=== PATIENT | male | born 1970 | race Caucasian/White ===

== ENCOUNTER 2021-02-14 21:57 | Observation (INO) ==
[2021-02-14 22:31] LABS: Basophils # (auto) 0.02 K/uL (0-0.2); Basophils % (auto) 0.2 %; Eosinophils # (auto) 0.04 K/uL (0-0.5); Eosinophils % (auto) 0.4 %; Hematocrit (blood only) 40.5 % (42-52); Hemoglobin 13.8 g/dL (14.0-18.0); Immature Granulocytes # (auto) 0.02 K/uL (0.00-0.02); Immature Granulocytes % (auto) 0.2 %; Lymphocytes # (auto) 2.72 K/uL (1.2-3.4); Lymphocytes % (auto) 25.8 %; Mean Corpuscular Hemoglobin 30.9 pg (25-34); Mean Corpuscular Hgb Conc 34.1 g/dL (32-36); Mean Corpuscular Volume 90.6 fL (80-100); Mean Platelet Volume 10.1 fL (7.4-10.4); Monocytes # (auto) 0.56 K/uL (0.11-0.59); Monocytes % (auto) 5.3 %; Neutrophils # (auto) 7.19 K/uL (1.4-6.5); Neutrophils % (auto) 68.1 %; Platelet Count 352 K/uL (130-400); RDW Coefficient of Variation 12.5 % (11.5-14.5); RDW Standard Deviation 40.9 fL (36.4-46.3); Red Blood Count 4.47 M/uL (4.7-6.1); White Blood Count 10.55 K/uL (4.8-10.8)
[2021-02-14 22:42] LABS: D Dimer 220 ug/L FEU (0-500); Partial Thromboplastin Time 26.8 Seconds (21.0-31.0); Prothrombin Time 9.8 Seconds (9.0-12.0)
[2021-02-14] MEDS ORDERED: GI COCKTAIL ED USE PO ONE (22:48)
[2021-02-14 22:58] LABS: Alanine Aminotransferase 20 U/L (12-78); Albumin Level 3.9 gm/dl (3.4-5.0); Aspartate Aminotransferase 15 U/L (15-37); BUN Creatinine Ratio 13.2 (10-20); Blood Urea Nitrogen 12 mg/dl (7-18); Carbon Dioxide 27 mmol/L (21-32); Chloride 102 mmol/L (98-107); Creatinine Clr Calc Pharmacy 104.8 ml/min; Est GFR (African American) 117.2; Est GFR (Non-African American) 101.1; Glucose 112 mg/dl (70-99); Potassium 3.5 mmol/L (3.5-5.1); Sodium 136 mmol/L (136-145)
[2021-02-14 23:02] LABS: Albumin Globulin Ratio 1.3 (0.9-2); Alkaline Phosphatase 92 U/L (45-117); Bilirubin,Total 0.4 mg/dl (0.2-1); Total Protein 6.9 gm/dl (6.4-8.2); Troponin I < 0.015 ng/ml (0-0.045)
[2021-02-15 00:23] LABS: Influenza A virus by PCR Negative (Neg); Influenza B virus by PCR Negative (Neg); RSV by PCR Negative (Neg); SARS CoV2 RNA(COVID-19) InHosp NEGATIVE (Negative)
[2021-02-15] MEDS ORDERED: METOPROLOL SUCC 25MG EXT REL TAB PO SCH (00:30)
--- NOTE | 2021-02-15 00:36 | Emergency Department Note ---
History of Present Illness General Chief complaint: Cardiac Assessment Stated complaint: CHEST PAIN Time Seen by Provider: 02/14/21 22:30 History of Present Illness Maximum Pain Intensity: 5 This 50-year-old smoker presents to the ER complaining of chest pain that radiates to his shoulders tonight that started around 8:30 PM Location: Chest Quality: Pressure Severity: Moderate Duration: This evening Timing: Started on 830 Context: Patient was concerned and called EMS Modifying factors: better with nitroglycerin and aspirin; worse with nothing Patient denies fever, chills, cough, congestion, dental pain, leg pain or swelling. He had Covid 3 weeks ago. He feels better from the Covid infection. No prior heart disease. No history of blood clots. Home Medications Medication Instructions Recorded Confirmed Type cholecalciferol (vitamin D3) 50 mcg PO DAILY 02/14/21 02/14/21 History [Vitamin D3] esomeprazole magnesium [Nexium] 40 mg PO DAILY 02/14/21 02/14/21 History famotidine 20 mg PO HS PRN 02/14/21 02/14/21 History glucos sul [id number] 1 cap PO DAILY 02/14/21 02/14/21 History [Glucosamine Chondroitin] levothyroxine 75 mcg PO QAM 02/14/21 02/14/21 History magnesium oxide 400 mg PO DAILY 02/14/21 02/14/21 History metoprolol succinate 25 mg PO HS 02/14/21 02/14/21 History omega-3 fatty acids 2,000 mg PO DAILY 02/14/21 02/14/21 History tadalafil 10 mg PO DIRECTED PRN 02/14/21 02/14/21 History turmeric 400 mg PO DAILY 02/14/21 02/14/21 History venlafaxine 150 mg PO HS 02/14/21 02/14/21 History Allergies Allergy/AdvReac Type Severity Reaction Status Date / Time Penicillins Allergy Mild RASH Verified 02/14/21 23:40 Past Med/Surg History Medical History GERD (gastroesophageal reflux disease) Surgical History No pertinent past surgical history Social History Smoking Status: Current every day smoker Feels Safe at Home: Yes Review of Systems A total of 10 systems reviewed and were otherwise negative Physical Exam Vital Signs Vital Signs - 24 hr 02/14/21 22:04 02/14/21 22:09 02/14/21 22:14 Temperature 36.9 C Temperature Source Oral Pulse Rate 106 H 99 H 99 H Pulse Rate from SpO2 Sensor 107 H 95 H Pulse Rhythm Regular Pulse Strength Normal Respiratory Rate 10 L 19 12 Respiratory Effort / Characteristics Non-Labored Respiratory Depth Normal Blood Pressure 131/94 131/94 Blood Pressure Mean 106 106 Pulse Oximetry 97 97 95 Oxygen Delivery Method Room Air Sepsis Recent Fever Within 48 Hours No Sepsis New/Unexplained Change in Mental Status N/A Sepsis Action Taken by Nursing No Action Required 02/14/21 22:19 02/14/21 22:30 02/14/21 22:31 Temperature Temperature Source Pulse Rate 96 H 89 89 Pulse Rate from SpO2 Sensor 94 H 92 H 85 Pulse Rhythm Pulse Strength Respiratory Rate 19 23 16 Respiratory Effort / Characteristics Respiratory Depth Blood Pressure 142/88 H 137/91 Blood Pressure Mean 106 106 Pulse Oximetry 95 95 96 Oxygen Delivery Method Sepsis Recent Fever Within 48 Hours Sepsis New/Unexplained Change in Mental Status Sepsis Action Taken by Nursing 02/14/21 23:31 Temperature Temperature Source Pulse Rate 85 Pulse Rate from SpO2 Sensor 86 Pulse Rhythm Pulse Strength Respiratory Rate 17 Respiratory Effort / Characteristics Respiratory Depth Blood Pressure 128/83 Blood Pressure Mean 98 Pulse Oximetry 96 Oxygen Delivery Method Sepsis Recent Fever Within 48 Hours Sepsis New/Unexplained Change in Mental Status Sepsis Action Taken by Nursing VITALS: Vitals are noted on the nurse's note and reviewed by myself. Vital signs stable. GENERAL: Pleasant male, in no acute distress, nondiaphoretic, well-developed well-nourished. SKIN: Capillary reflex less than 2 seconds. HEENT: Normocephalic. PERRLA. EOMI. Nares patent. Mucous membranes moist. Neck is supple without nuchal rigidity. HEART: Regular rate and rhythm, chest nontender to palpation LUNGS: Clear to auscultation bilaterally without wheezes, rales or rhonchi. No retractions or accessory muscle use. ABDOMEN: Positive bowel sounds x 4. Normal tympanic percussion. Soft, nonten samir, without masses or organomegaly. Heard sign negative. No guarding or rebound tenderness. MUSCULOSKELETAL: No gross musculoskeletal defects. NEURO: Patient was alert and oriented to person place and time. No focal neurological deficits. Course Administered Medications Discontinued Medications Al Hydrox/Mg Hydrox/Simethicone (Gi Cocktail Ed Use) 1 dose PO ONE ONE Stop: 02/14/21 22:49 Last Admin: 02/14/21 22:55 Dose: 1 dose Documented by: [id number] Medical Decision Making Medical Records Attestation: I reviewed the patient's medical records. Home Medications Current Medication List: was personally reviewed by me Laboratory Data Attestation: I reviewed the patient's lab results. Result diagrams: 02/14/21 22:15 02/14/21 22:15 Lab Results 02/14/21 02/14/21 02/14/21 Range/Units 22:15 22:15 22:15 WBC 10.55 (4.8-10.8) K/uL RBC 4.47 L (4.7-6.1) M/uL Hgb 13.8 L (14.0-18.0) g/dL Hct 40.5 L (42-52) % MCV 90.6 (80-100) fL MCH 30.9 (25-34) pg MCHC 34.1 (32-36) g/dL RDW Std Deviation 40.9 (36.4-46.3) fL RDW Coeff of Sandra 12.5 (11.5-14.5) % Plt Count 352 (130-400) K/uL MPV 10.1 (7.4-10.4) fL Immature Gran % (Auto) 0.2 % Neut % (Auto) 68.1 % Lymph % (Auto) 25.8 % [place] % (Auto) 5.3 % Eos % (Auto) 0.4 % Baso % (Auto) 0.2 % Neut # (Auto) 7.19 H (1.4-6.5) K/uL Lymph # (Auto) 2.72 (1.2-3.4) K/uL [place] # (Auto) 0.56 (0.11-0.59) K/uL Eos # (Auto) 0.04 (0-0.5) K/uL Baso # (Auto) 0.02 (0-0.2) K/uL Immature Gran # (Auto) 0.02 (0.00-0.02) K/uL PT 9.8 (9.0-12.0) Seconds INR 1.0 (0.9-1.1) APTT 26.8 (21.0-31.0) Seconds PTT Ratio 1.0 D-Dimer 220 (0-500) ug/L FEU Sodium 136 (136-145) mmol/L Potassium 3.5 (3.5-5.1) mmol/L Chloride 102 (98-107) mmol/L Carbon Dioxide 27 (21-32) mmol/L Anion Gap 7.0 (3-11) BUN 12 (7-18) mg/dl Creatinine 0.89 (0.6-1.4) mg/dl Est Cr Clr Drug Dosing 104.8 ml/min Est GFR ( Amer) 117.2 Est GFR (Non-Af Amer) 101.1 BUN/Creatinine Ratio 13.2 (10-20) Glucose 112 H (70-99) mg/dl Calcium 9.0 (8.5-10.1) mg/dl Total Bilirubin 0.4 (0.2-1) mg/dl AST 15 (15-37) U/L ALT 20 (12-78) U/L Alkaline Phosphatase 92 (45-117) U/L Troponin I < 0.015 (0-0.045) ng/ml Total Protein 6.9 (6.4-8.2) gm/dl Albumin 3.9 (3.4-5.0) gm/dl Globulin 3.0 (2.5-4.0) gm/dl Albumin/Globulin Ratio 1.3 (0.9-2) COVID-19 Eval Order SARS-CoV-2 (PCR) (Negative) Influenza Type A (PCR) (Neg) Influenza Type B (PCR) (Neg) RSV (RT-PCR) (Neg) 02/14/21 02/14/21 Range/Units 23:29 23:29 WBC (4.8-10.8) K/uL RBC (4.7-6.1) M/uL Hgb (14.0-18.0) g/dL Hct (42-52) % MCV (80-100) fL MCH (25-34) pg MCHC (32-36) g/dL RDW Std Deviation (36.4-46.3) fL RDW Coeff of Sandra (11.5-14.5) % Plt Count (130-400) K/uL MPV (7.4-10.4) fL Immature Gran % (Auto) % Neut % (Auto) % Lymph % (Auto) % [place] % (Auto) % Eos % (Auto) % Baso % (Auto) % Neut # (Auto) (1.4-6.5) K/uL Lymph # (Auto) (1.2-3.4) K/uL [place] # (Auto) (0.11-0.59) K/uL Eos # (Auto) (0-0.5) K/uL Baso # (Auto) (0-0.2) K/uL Immature Gran # (Auto) (0.00-0.02) K/uL PT (9.0-12.0) Seconds INR (0.9-1.1) APTT (21.0-31.0) Seconds PTT Ratio D-Dimer (0-500) ug/L FEU Sodium (136-145) mmol/L Potassium (3.5-5.1) mmol/L Chloride (98-107) mmol/L Carbon Dioxide (21-32) mmol/L Anion Gap (3-11) BUN (7-18) mg/dl Creatinine (0.6-1.4) mg/dl Est Cr Clr Drug Dosing ml/min Est GFR ( Amer) Est GFR (Non-Af Amer) BUN/Creatinine Ratio (10-20) Glucose (70-99) mg/dl Calcium (8.5-10.1) mg/dl Total Bilirubin (0.2-1) mg/dl AST (15-37) U/L ALT (12-78) U/L Alkaline Phosphatase (45-117) U/L Troponin I (0-0.045) ng/ml Total Protein (6.4-8.2) gm/dl Albumin (3.4-5.0) gm/dl Globulin (2.5-4.0) gm/dl Albumin/Globulin Ratio (0.9-2) COVID-19 Eval Order CovFluRsv at [facility] [place] SARS-CoV-2 (PCR) NEGATIVE (Negative) Influenza Type A (PCR) Negative (Neg) Influenza Type B (PCR) Negative (Neg) RSV (RT-PCR) Negative (Neg) Imaging Data Attestation: I personally reviewed and interpreted this imaging study as follows: MDM Narrative Prior records/ancillary studies reviewed. Triage Nursing notes reviewed. Additional history obtained from nursing The patient's history was concerning for chest pain. Differential diagnosis: Etiologies such as cardiac ischemia, aortic dissection, pulmonary embolism, pneumonia, pneumothorax, musculoskeletal, infections, pericarditis, myocarditis, esophageal rupture, gastrointestinal, as well as others were entertained. Physical examination: As above. ER treatment provided: An order was placed for continuous cardiac monitoring. The monitor shows a rate of 60-1 10 with a sinus rhythm. GI cocktail. EMS gave aspirin nitroglycerin On reassessment the patient felt better. Diagnostic interpretation by me: #1 the electrocardiogram was normal sinus, occasional PVC, T wave inversions in V3 through V6, rate of 107. Impression sinus tachycardia with T wave inversions in the lateral leads and occasional PVC interpreted by myself EKG ordered for chest pain I think arrhythmia is unlikely. EKG shows no interval abnormalities such as QT prolongation or WPW. There are no findings to suggest Brugada syndrome. Cardiac monitoring in the emergency department reveals no tachycardic or bradycardic dy srhythmia. Hypertrophic cardiomyopathy was considered but there are no clear historical elements pointing toward this. EKG is not suggestive. The QRS voltage is not extremely large and there are no suggestive Q waves. #2the electrocardiogram was normal sinus, occasional PVC, progressive T wave inversions in V3 through V6, rate of 107. Impression sinus tachycardia with T wave inversions in the lateral leads and occasional PVC interpreted by myself EKG ordered for chest pain I think arrhythmia is unlikely. EKG shows no interval abnormalities such as QT prolongation or WPW. There are no findings to suggest Brugada syndrome. Cardiac monitoring in the emergency department reveals no tachycardic or bradycardic dysrhythmia. Hypertrophic cardiomyopathy was considered but there are no clear historical elements pointing toward this. EKG is not suggestive. The QRS voltage is not extremely large and there are no suggestive Q waves. The labs revealed negative troponin, negative dimer Imaging studies: Chest x-ray with no acute consolidation, pneumothorax or free air per my interpretation HEART SCORE: Hx: high/mod/low suspicion: 1 ECG: ST depression/nonspecific changes/normal: 1 Age: Greater than 65/45-64/less than 45: 1 Risk factors: (Hypertension, hyperlipidemia, diabetes, coronary disease, tobacco use, cocaine use): 1 Troponin: Greater than 2 times normal limits/1-2 times normal limits/normal: 0 Total: 4 Consultation: A consultation was placed with the hospitalist, Dr. Grayson. The case was discussed and diagnostics were reviewed. The patient was evaluated in the ER for further treatment. Exam and history seem consistent with chest pain with concerns for cardiac in etiology. First troponins negative. New changes to the EKG when compared to prior. Heart score is moderate. Patient agreeable to treatment plan of admission. EMS gave aspirin. He was pain-free in the ER. D-dimer was negative. By the evaluation outlined above emergent etiologies such as aortic dissection, pulmonary embolism, pneumonia, pneumothorax, infections, pericarditis, myocarditis, gastrointestinal, as well as others were deemed relatively unlikely. The pt informed about the findings as listed above. All questions were answered and pleased with the treatment. The chart was completed utilizing [employer] Speech voice recognition software. Grammatical errors, random word insertions, pronoun errors, and incomplete sentences are an occassional consequence of this system due to software limitations, ambient noise, and hardware issues. Any formal questions or concerns about the content, text, or information contained within the body of this dictation should be directly addressed to the physician practice assistant for clarification. Impression & Plan Chest pain Discharge Plan Visit Data Chief Complaint: Cardiac Assessment Stated Complaint: CHEST PAIN ED Provider: Ana Harris ED Midlevel Provider: Cassandra Ross Discharge Problem: Chest pain Patient Disposition: Being Evaluated by Hospitalist Condition: Good Forms Stand Alone Forms: My [facility] [employer] Prescriptions Prescriptions: No Action omega-3 fatty acids 1,000 mg Capsule 2,000 mg PO DAILY RF: 0 venlafaxine 150 mg capsule,extended release 24hr 150 mg PO HS RF: 0 levothyroxine 75 mcg tablet 75 mcg PO QAM RF: 0 famotidine 20 mg tablet 20 mg PO HS PRN (Reason: Heartburn) RF: 0 esomeprazole magnesium [Nexium] 40 mg Capsule,Delayed Release(Dr/Ec) 40 mg PO DAILY RF: 0 metoprolol succinate 25 mg tablet extended release 24 hr 25 mg PO HS RF: 0 tadalafil 10 mg tablet 10 mg PO DIRECTED PRN (Reason: Erectile Dysfunction) RF: 0 cholecalciferol (vitamin D3) [Vitamin D3] 50 mcg (2,000 unit) Capsule 50 mcg PO DAILY RF: 0 magnesium oxide 400 mg magnesium Tablet 400 mg PO DAILY RF: 0 turmeric 400 mg Capsule 400 mg PO DAILY RF: 0 Glucosamine Chondroitin 550-30-1 mg Capsule 1 cap PO DAILY RF: 0 Referrals Referrals: Daphne Dunbar CRNP [Primary Care Provider] -
--- NOTE | 2021-02-15 00:45 | History & Physical Report ---
Date of Service February 15, 2021 Assessment & Plan Admission and Anticipated Discharge Date Admission Date: 50 yo M w/ pMHx. of PVC's, reflux, prior tobacco use and mood disorder presents with new onset of chest pain radiating to left shoulder and back with no clear aggravating or alleviating factors Chest pain, would want to rule out ACS w/ risk factors of tobacco use and fHx. although this may represents worsening reflux and alternative diagnosis include cardiomyopathy 2/2 PVC's or recent COVID infection EKG with T wave changes, PVC's CXR with no acute findings HEART score 2 (low risk of ACS) - trend troponin Q6H X3 - ECHO ordered - ASA - ekgs and nitro with chest pain - giving oral potassium for goal of 4 PVC's - continue Metoprolol 25 QHS - will need to follow up with cardiology outpatient and may require outpatient cardiac monitoring to evaluate PVC burden mood disorder - continue venlafaxine Code: full Diet: HH DVT prophylaxis: SCD's/ambulation History of Present Illness Chief Complaint: chest pain Primary Care Provider: FAROOQ Parrish is here for chest pain. At 8 PM he developed central chest pressure that moved to his left shoulder and then went to his between his shoulder blades. It progressively worsened until 9PM and then improved for a little bit but was returning. He had associated palpitations described as heart pounding in his chest. The pain was not worse with walking. He did have some shortness of breath and some light tingling in his fingers associated with the pain. He had no improvement with Pepcid that normally improves his reflux pain. He also didn't have any improvement in his pain when he had nitro. He has had something like this in the past related to reflux, but the location was more in the epigastric area. He sees Dr. Rey for cardiology, but has not seen him for 7-8 years. He was seen for PVC's. He currently is on Metoprolol but has not taken his PM dose yet. He was Covid + on 01/30 and developed symptoms 3 days prior. He had headache, diarrhea for 8 days and chills. He contracted COVID at work along. One week ago he did have some chest tightness as his COVID symptoms were improving that felt like he was developing bronchitis but those symptoms resolve and were different that the pain he currently has. He is on Venlafaxin for mood disorder, he had more stress at work over the last day but feels he has good support and had just talked to his mother and was playing the guitar prior to the onset of the pain. Fhx.: of cardiac disease includes MGM ([place] at 42), MGF (CABG in 70's), and mother has heart disease Social Hx.: - smoked for 20 years quit 10 years ago, does use pouch - no ETOH use - uses marijuana via vape daily including today, has a card for anxiety - no recreational drugs, specifically denies any cocaine use Allergies Allergy/AdvReac Type Severity Reaction Status Date / Time Penicillins Allergy Mild RASH Verified 02/14/21 23:40 Home Medications Medication Instructions Recorded Confirmed Type Glucosamine Chondroitin 1 cap PO DAILY 02/14/21 02/14/21 History cholecalciferol (vitamin D3) 50 mcg PO DAILY 02/14/21 02/14/21 History [Vitamin D3] esomeprazole magnesium [Nexium] 40 mg PO DAILY 02/14/21 02/14/21 History famotidine 20 mg PO HS PRN 02/14/21 02/14/21 History levothyroxine 75 mcg PO QAM 02/14/21 02/14/21 History magnesium oxide 400 mg PO DAILY 02/14/21 02/14/21 History metoprolol succinate 25 mg PO HS 02/14/21 02/14/21 History omega-3 fatty acids 2,000 mg PO DAILY 02/14/21 02/14/21 History tadalafil 10 mg PO DIRECTED PRN 02/14/21 02/14/21 History turmeric 400 mg PO DAILY 02/14/21 02/14/21 History venlafaxine 150 mg PO HS 02/14/21 02/14/21 History Past Med/Surg History Medical History GERD (gastroesophageal reflux disease) Surgical History No pertinent past surgical history Social History Smoking Status: Current every day smoker Second Hand Exposure: No; Hx Alcohol Use: No Hx Substance Use: No Preferred Language: Ivorian Communication Ability: Effective Supervisor [employer] Required: No Beliefs That Will Affect Care: None Current Living Situation: Alone Feels Safe at Home: Yes Assistive Devices: None Review of Systems Review of Systems: Constitutional: denies fever, chills, vomiting, night sweats Head: denies trauma, LOC, headache admits lightheadedness Neuro: denies syncope/presyncope ENT: denies rhinorrhea, stuffiness, sneezing Cardiac: admits chest pain, palpitations Pulm.: denies trouble breathing or cough admits shortness of breath GI: denies constipation diarrhea, admits abdominal pain : denies pain, frequency, urgency Physical Exam Constitutional: WD/WN, vitals as above Eyes: PERRL, conjunctivae normal, anicteric sclerae ENMT: external ear and nose normal, oropharynx normal Neck: normal visual inspection Respiratory: normal respiratory effort, lungs clear to auscultation Cardiovascular: RRR, no murmur, no edema Chest (Breasts): Additional Comments: - no pain on palpation of sternum or costochondral cartilage of the chest Gastrointestinal (Abdomen): - normal bowel sounds, soft, nTTP Skin: no rashes, warm and dry Neurologic: no focal motor deficits Psychiatric: Orientation: alert Eye Contact: good eye contact Affect: + anxious affect Results & Data Results & Data ([facility]) Vital Signs (Past 12 Hours) Vital Signs Temp Pulse Resp BP Pulse Ox 02/14/21 23:31 85 17 128/83 96 02/14/21 22:31 89 16 96 02/14/21 22:30 89 23 137/91 95 02/14/21 22:19 96 H 19 142/88 H 95 02/14/21 22:14 36.9 C 99 H 12 131/94 95 02/14/21 22:09 99 H 19 97 02/14/21 22:04 106 H 10 L 131/94 97 Code Status & VTE Plan VTE Prophylaxis Plan VTE Prophylaxis will be ordered: Yes Supervising Physician Co-Signing Physician Notes Attending addendum: I have physically seen this patient, have supervised the medical residents activities, and agree with the H&P unless as otherwise noted. Assessment and Plan: Chest pain- Nonspecific ST wave changes on EKG PVCs noted The patient will be admitted to telemetry for serial cardiac enzymes, serial EKG's, cardiac rhythm monitoring and a 2-D echocardiogram with Dopplers. Continue aspirin Optimize potassium from 3.5 to goal of 4 Continue metoprolol succinate 25 mg daily Hypothyroidism- Continue levothyroxine 75 mcg daily GERD- Continue Nexium/pantoprazole Anxiety/depression- Continue venlafaxine Remaining orders and notations as noted
[2021-02-15] MEDS ORDERED: POLYETHYLENE (MIRALAX) 17 GM PACK PO PRN (01:28)
[2021-02-15] MEDS ORDERED: NITROGLYCERIN SL 0.4 MG/TAB TAB SL PRN (01:28)
[2021-02-15] MEDS ORDERED: FAMOTIDINE 20 MG TAB PO PRN (01:28)
[2021-02-15] MEDS ORDERED: ACETAMINOPHEN 325 MG TAB PO PRN (01:28)
[2021-02-15 04:54] LABS: Basophils # (auto) 0.01 K/uL (0-0.2); Basophils % (auto) 0.1 %; Eosinophils # (auto) 0.02 K/uL (0-0.5); Eosinophils % (auto) 0.2 %; Hematocrit (blood only) 39.7 % (42-52); Hemoglobin 13.6 g/dL (14.0-18.0); Immature Granulocytes # (auto) 0.01 K/uL (0.00-0.02); Immature Granulocytes % (auto) 0.1 %; Lymphocytes % (auto) 36.5 %; Mean Corpuscular Hgb Conc 34.3 g/dL (32-36); Mean Corpuscular Volume 90.4 fL (80-100); Mean Platelet Volume 9.9 fL (7.4-10.4); Monocytes # (auto) 0.47 K/uL (0.11-0.59); Neutrophils # (auto) 5.41 K/uL (1.4-6.5); Neutrophils % (auto) 58.1 %; Platelet Count 322 K/uL (130-400); RDW Coefficient of Variation 12.4 % (11.5-14.5); RDW Standard Deviation 41.2 fL (36.4-46.3); Red Blood Count 4.39 M/uL (4.7-6.1); White Blood Count 9.32 K/uL (4.8-10.8)
[2021-02-15 05:29] LABS: BUN Creatinine Ratio 13.7 (10-20); Blood Urea Nitrogen 10 mg/dl (7-18); Calcium 8.7 mg/dl (8.5-10.1); Carbon Dioxide 29 mmol/L (21-32); Chloride 109 mmol/L (98-107); Creatinine Clr Calc Pharmacy 124.4 ml/min; Est GFR (African American) 125.7; Est GFR (Non-African American) 108.5; Glucose 104 mg/dl (70-99); Magnesium 2.5 mg/dl (1.8-2.4); Potassium 3.9 mmol/L (3.5-5.1); Sodium 143 mmol/L (136-145); Troponin I < 0.015 ng/ml (0-0.045)
[2021-02-15] MEDS ORDERED: LEVOTHYROXINE SODIUM 75 MCG TABLET PO SCH (06:30)
--- NOTE | 2021-02-15 07:58 | XRay Report ---
XR chest 1V portable HISTORY: Atypical Chest Pain COMPARISON: 02/09/2013. FINDINGS: No pneumothorax. No pleural effusions. The heart is normal in size. No evidence for pulmona ry edema. Degenerative changes again noted within the shoulders. The lungs are clear. IMPRESSION: No acute process. ACT 112: Negative or not required by law. Electronically signed by: Timoteo Erwin M.D. 02/15/2021 7:57 AM
[2021-02-15] MEDS ORDERED: MAGNESIUM OXIDE 400 MG TAB PO SCH (09:00)
[2021-02-15] MEDS ORDERED: PANTOprazole 40 MG TAB PO SCH (09:00)
[2021-02-15] MEDS ORDERED: ASPIRIN 81 MG ECTAB PO SCH (09:00)
--- NOTE | 2021-02-15 09:54 | XCELERA ---
[id number]
--- NOTE | 2021-02-15 12:33 | XCELERA ---
[id number]
--- NOTE | 2021-02-15 14:11 | Discharge Summary ---
Date of Service February 15, 2021 Admission HPI Per Admitting Provider Hawk Abernathy is here for chest pain. At 8 PM he developed central chest pressure that moved to his left shoulder and then went to his between his shoulder blades. It progressively worsened until 9PM and then improved for a little bit but was returning. He had associated palpitations described as heart pounding in his chest. The pain was not worse with walking. He did have some shortness of breath and some light tingling in his fingers associated with the pain. He had no improvement with Pepcid that normally improves his reflux pain. He also didn't have any improvement in his pain when he had nitro. He has had s omething like this in the past related to reflux, but the location was more in the epigastric area. He sees Dr. Rey for cardiology, but has not seen him for 7-8 years. He was seen for PVC's. He currently is on Metoprolol but has not taken his PM dose yet. He was Covid + on 01/30 and developed symptoms 3 days prior. He had headache, diarrhea for 8 days and chills. He contracted COVID at work along. One week ago he did have some chest tightness as his COVID symptoms were improving that felt like he was developing bronchitis but those symptoms resolve and were different that the pain he currently has. He is on Venlafaxin for mood disorder, he had more stress at work over the last day but feels he has good support and had just talked to his mother and was playing the guitar prior to the onset of the pain. Fhx.: of cardiac disease includes MGM ([place] at 42), MGF (CABG in 70's), and mother has heart disease Social Hx.: - smoked for 20 years quit 10 years ago, does use pouch - no ETOH use - uses marijuana via vape daily including today, has a card for anxiety - no recreational drugs, specifically denies any cocaine use Principal Diagnosis Chest pain Discharge Exam Constitutional WD/WN, vitals as above Neck trachea midline, no thyromegaly Respiratory normal respiratory effort, lungs clear to auscultation Cardiovascular RRR, no murmur, no edema Gastrointestinal (Abdomen) normal bowel sounds, soft, nontender, no hepatosplenomegaly Musculoskeletal no cyanosis or clubbing, extremities motor strength 5/5 Skin no rashes, warm and dry Neurologic patellar DTR's 2+ bilat, sensation intact and PERRL, EOMI, accommodation nl, no face palsy, no dysarthria Psychiatric A+Ox3, euthymic affect Lymphatic no cervical or axillary lymphadenopathy Discharge Data Allergies Allergy/AdvReac Type Severity Reaction Status Date / Time Penicillins Allergy Mild RASH Verified 02/14/21 23:40 Consultations 02/14/21 23:10 ED Decision to Admit Stat Hospital Course (1) Chest pain: centralized chest pain/pressure, occurred at rest EKG normal, troponin negative x 2 echocardiogram with preserved EF, no wall motion abnormalities stress echocardiogram done today, no ischemic changes on EKG, no changes on echo, no chest pain with 94% predicted HR discussed other possible issues such as vaping marijuana see below CXR is clear discharge to home (2) Marijuana abuse: vapes marijuana daily, he has a medical card for use for anxiety discussed that he should really not vape educated him on possible vaping lung injury suggested that if he is going to use marijuana for anxiety, he could try alternative form such as edible or drink Total Time Total Time Spent Total Time Spent (In Minutes): 25 Discharge Plan Discharge Items Patient Disposition: Home - Self-Care Reason For Visit: CHEST PAIN Discharge Diagnosis: Chest pain, non-cardiac Condition on Discharge: Good Goals: follow up with PCP as needed Activity: Resume your previous activity Non-emergency contact: Primary Care Provider Call non-emergency contact if: you have any medication questions Follow-up/Referrals: Daphne Dunbar CRNP [Primary Care Provider] - (as needed, if chest pain persists) Diet: Regular Addtl Attending Provider Instructions: Medications: no changes Chest pain: no evidence that this is cardiac in nature troponin (heart enzyme) was negative, negative stress echocardiogram normal EKG, normal chest x-ray and pain resolved please follow up with Daphne Dunbar if you have this pain again, can work up other etiology Vaping: please be cautious with vaping, your lungs appear fine currently on chest x-ray however, vaping can cause serious lung injury, could happen at any time, wo uld advice against it if possible Pending Studies at Discharge: No Stand-Alone Forms: My mInfo, Smoking Cessation Medications and DC Order Prescriptions: Continued omega-3 fatty acids 1,000 mg Capsule 2,000 mg PO DAILY RF: 0 venlafaxine 150 mg capsule,extended release 24hr 150 mg PO HS RF: 0 levothyroxine 75 mcg tablet 75 mcg PO QAM RF: 0 famotidine 20 mg tablet 20 mg PO HS PRN (Reason: Heartburn) RF: 0 esomeprazole magnesium [Nexium] 40 mg Capsule,Delayed Release(Dr/Ec) 40 mg PO DAILY RF: 0 metoprolol succinate 25 mg tablet extended release 24 hr 25 mg PO HS RF: 0 tadalafil 10 mg tablet 10 mg PO DIRECTED PRN (Reason: Erectile Dysfunction) RF: 0 cholecalciferol (vitamin D3) [Vitamin D3] 50 mcg (2,000 unit) Capsule 50 mcg PO DAILY RF: 0 magnesium oxide 400 mg magnesium Tablet 400 mg PO DAILY RF: 0 turmeric 400 mg Capsule 400 mg PO DAILY RF: 0 Glucosamine Chondroitin 550-30-1 mg Capsule 1 cap PO DAILY RF: 0 Discharge Orders: Discharge Order (Routine); Ordered 02/15/21 Ordered By: Abdi Landa Admission Data Admit Date/Time: 02/15/21 00:30 Attending Provider: Abdi Landa Admit Provider: Lonnie Guadarrama Primary Care Provider: Daphne Dunbar Other Providers: Rip Madera Other Interventions: Discharge Summary Assessment (RN) Last Done: 02/15/21 14:21 Coding Level of Care Code 38742 OBS Care - Discharge Diagnoses Chest pain R07.9 Chest pain type: unspecified Marijuana abuse F12.10
--- NOTE | 2021-02-15 20:20 | Billing Data ---
Date of Service February 15, 2021 Coding Level of Care Code 01988 OBS Care - Level 3
[2021-02-15] MEDS ORDERED: VENLAFAXINE HCL XR 150 MG CAPXR PO SCH (21:00)
--- NOTE | 2021-02-16 06:14 | Electrocardiogram Report ---
Test Reason : Blood Pressure : / mmHG Vent. Rate : 107 BPM Atrial Rate : 107 BPM P-R Int : 164 ms QRS Dur : 088 ms QT Int : 334 ms P-R-T Axes : 056 047 070 degrees QTc Int : 445 ms Sinus tachycardia with frequent Premature ventricular complexes Nonspecific T wave abnormality Abnormal ECG When compared with ECG of 26-OCT-2014 09:06, Vent. rate has increased BY 44 BPM T wave inversion now evident in Inferior leads T wave inversion less evident in Anterior leads Confirmed by Jasiel Harris ([id number]) on 02/16/2021 6:14:23 AM Referred By: REFERRED SELF Confirmed By:Jasiel Harris
--- NOTE | 2021-02-16 06:15 | Electrocardiogram Report ---
Test Reason : Blood Pressure : / mmHG Vent. Rate : 085 BPM Atrial Rate : 085 BPM P-R Int : 160 ms QRS Dur : 084 ms QT Int : 352 ms P-R-T Axes : 052 024 008 degrees QTc Int : 418 ms Sinus rhythm with sinus arrhythmia with occasional Premature ventricular complexes T wave abnormality, consider anterior ischemia Abnormal ECG When compared with ECG of 14-FEB-2021 22:02, T wave inversion more evident in Anterior leads Confirmed by Jasiel Harris ([id number] on 02/16/2021 6:15:20 AM Referred By: REFERRED SELF Confirmed By:Jasiel Harris
== END 2021-02-15 15:28 | disposition home or self-care (01) ==
LOC: ED 21:57 → 2N 21:57 → SUATTDRO 02-15 00:30 → 2N 02-15 01:10